=== PATIENT | female | born 1975 | race Caucasian/White ===

== ENCOUNTER → 2023-05-18 | Outpatient (CLI) | payer OTHER ==
--- NOTE | 2023-05-18 08:09 | MM ---
Reason for Exam: Clinical finding. Baseline mammogram. Indicated Problems: Pain of both sides (Global) for 10 Year(s) : around breasts. Patient History: Menarche at age 18. First Full-Term at age 23. Left ovary removed at age 37. Hysterectomy at age 37. Postmenopausal. Patient has history of breast feeding. Maternal aunt had breast cancer at or over age 50. Risk Values: Caren 5 year model risk: 0.7%. NCI Lifetime model risk: 7.9%. Prior Study Comparison: Patient's first Mammogram. Tissue Density: The breast tissue is heterogeneously dense. This may lower the sensitivity of mammography. Findings: Analyzed By CAD. Circumscribed nodularity in the upper outer quadrant of both breasts likely intramammary lymph nodes. Further ultrasound evaluation is recommended. A minimal if indicated laterally and posteriorly on the left. Otherwise, no other significant mass, suspicious microcalcification, or discrete abnormality is seen. Overall Assessment: Incomplete: need additional imaging evaluation, BI-RAD 0 Management: Diagnostic Breast Ultrasound of both breasts. Bilateral upper outer quadrants for nodularity and pain. Electronically signed and approved by: Malik Hatch M.D. Radiologist
--- NOTE | 2023-05-18 08:54 | USB ---
Reason for Exam: Additional evaluation requested from abnormal screening. Patient History: Menarche at age 18. First Full-Term at age 23. Left ovary removed at age 37. Hysterectomy at age 37. Postmenopausal. Patient has history of breast feeding. Maternal aunt had breast cancer at or over age 50. Risk Values: Caren 5 year model risk: 0.7%. NCI Lifetime model risk: 7.9%. Technique: Method: Targeted. Findings: The upper outer quadrant of both breasts, the axilla of both breasts and the retroareolar of both breasts were scanned. Targeted ultrasound along the upper outer quadrant of both breasts. Additional scanning of the subareolar region and axilla was. Right: At the 9:00 position, 6 cm from the nipple, there is a 5 x 5 x 3 mm oval circumscribed hypoechoic lesion with posterior through transmission, suspected debris filled cyst, mammographic correlation. Benign-appearing lymph node at the axilla. No other solid or cystic lesion. Left: At the 2:00 position, 4 cm from the nipple, there is a 7 x 5 x 4 mm cyst cluster, likely mammographic correlate. At the 2:00 position, 6 cm from the nipple, there is a small intramammary lymph node measuring 5 x 5 x 4 mm, likely mammographic correlate. No other solid or cystic lesion or axillary lymphadenopathy. Overall Assessment: Probably benign, BI-RAD 3 Management: Diagnostic Mammogram of both breasts in 6 months. A clinical breast exam by your physician is recommended on an annual basis and results should be correlated with mammographic findings. This exam should not preclude additional follow-up of suspicious palpable abnormalities. Results were given to the patient verbally at the time of exam. Electronically signed and approved by: Malik Hatch M.D. Radiologist
== END | disposition home or self-care (01) ==
LOC: RADMAMWWP 07:33
PROVIDERS: ATTEND Internal Medicine
DX: R92.333 Mammographic heterogeneous density, bilateral breasts (principal); Z78.0 Asymptomatic menopausal state; Z80.3 Family history of malignant neoplasm of breast
CPT/HCPCS: 77066; 76642; G0279; 77062

== ENCOUNTER 2023-07-10 10:36 | Day surgery (SDC) | payer OTHER ==
[~2023-07-10 10:36] MED LIST: LACTATED RINGERS 1,000 ML IV SCH; LIDOCAINE 1% (10MG/ML) FOR IV START INTRADERMA PRN
[2023-07-10 11:02] LABS: Glucose,Whole Blood 94 mg/dL (70-110)
[2023-07-10 11:12] VITALS: TEMP 97
[2023-07-10] MEDS ORDERED: PROPOFOL 10 MG/ML 20 ML VIAL IV ONE (11:54)
--- NOTE | 2023-07-10 12:13 | P.PCN ---
Date of Procedure: 07/10/23 Procedure(s) Performed: BRIEF HISTORY: Patient is a 47-year-old pleasant white female scheduled for an elective colonoscopy as a part of screening for colon cancer and family history of colon cancer. HER-2 paternal uncles and paternal first cousin were all diagnosed with colon cancer in their 40s and 50s respectively PROCEDURE PERFORMED: Colonoscopy with snare polypectomy. PREOPERATIVE DIAGNOSIS: Screening for colon cancer and family history of colon cancer. IV sedation per Anesthesia. PROCEDURE: After informed consent was obtained, the patient, was brought into the endoscopy unit. IV sedation was administered by Anesthesia under continuous monitoring. Digital rectal examination was normal. Initially the Olympus CF-160 flexible video colonoscope was then inserted in the rectum, gradually advanced into the cecum without any difficulty. Careful examination was performed as the scope was gradually being withdrawn. Ileocecal valve and the appendiceal orifice were visualized and appeared normal. Prep was excellent. Mucosa of the cecum, ascending colon, transverse colon, appeared normal. In the descending colon there was a 1 mm polyp that was removed by cold snare polypectomy. In the sigmoid: There was a 5 mm and 1 cm polyp that was removed by snare polypectomy. Rest of the descending colon, sigmoid colon, and rectum appeared normal. Retroflexion was performed in the rectum and no lesions were seen. The patient tolerated the procedure well. IMPRESSION: 5 mm descending colon polyp status post cold snare polypectomy 5 mm and 1 cm; sigmoid polyp status post snare polypectomy RECOMMENDATIONS: Findings of this examination were discussed with the patient well as her family. She was advised to follow with the biopsy results. If the biopsy results adenoma she can have a repeat colonoscopy in 3 years..
[2023-07-10 13:08] VITALS: BP 98/63; PULSE 73; RESP 18
== END 2023-07-10 12:49 | disposition home or self-care (01) ==
LOC: ORWHC2ENDO 10:36
PROVIDERS: ATTEND Internal Medicine Gastroenterology
DX: Z12.11 Encounter for screening for malignant neoplasm of colon (principal); D12.4 Benign neoplasm of descending colon; D12.5 Benign neoplasm of sigmoid colon; Z79.899 Other long term (current) drug therapy; F17.200 Nicotine dependence, unspecified, uncomplicated; E03.9 Hypothyroidism, unspecified; Z79.890 Hormone replacement therapy; Z90.710 Acquired absence of both cervix and uterus; Z80.0 Family history of malignant neoplasm of digestive organs; Z85.50 Personal history of malignant neoplasm of unspecified urinary tract organ
CPT/HCPCS: 45385; J2704; G0463; G0008; 88305; 99213